=== PATIENT | female | born 1985 | race Caucasian/White ===

== ENCOUNTER 2016-12-19 19:41 | Emergency (ER) | payer SELFPAY ==
[~2016-12-19] VITALS: Ht 160 cm; Wt 104.8 kg
[~2016-12-19 19:41] MED LIST: AMOXICILLIN500 MG PO; CYCLOBENZAPRINE10 MG PO; IBUPROFEN200 M1 PO; IBUPROFEN600 MG PO; KEFLEX500 MG PO; NAPROSYN500 MG PO; NAPROXEN500 MG PO; NORCO 5-325 TA1 EACH PO; PSEUDOEPHEDRINE60 MG PO; PYRIDIUM200 MG PO; ROBAXIN500 MG PO; ULTRAM50 MG PO; ZOFRAN4 MG PO
[2016-12-19] MEDS ORDERED: KEFLEX500 MG PO (21:36)
== END 2016-12-19 21:55 | disposition home or self-care (01) ==
LOC: ED 19:41
DX: K80.20 Calculus of gallbladder without cholecystitis without obstruction (principal); N39.0 Urinary tract infection, site not specified; F17.200 Nicotine dependence, unspecified, uncomplicated; Z90.79 Acquired absence of other genital organ(s)
CPT/HCPCS: 74176; 81001; 84703; 99284

== ENCOUNTER 2017-03-27 18:57 | Emergency (ER) | payer SELFPAY ==
[~2017-03-27] VITALS: Ht 160 cm; Wt 104.8 kg
== END 2017-03-27 19:34 | disposition home or self-care (01) ==
LOC: ED 18:57
DX: S60.221A Contusion of right hand, initial encounter (principal); F17.200 Nicotine dependence, unspecified, uncomplicated; W22.8XXA Striking against or struck by other objects, initial encounter
CPT/HCPCS: 73130; 99283

== ENCOUNTER 2017-04-04 16:29 | Emergency (ER) | payer SELFPAY ==
[~2017-04-04] VITALS: Ht 160 cm; Wt 104.8 kg
[2017-04-04] MEDS ORDERED: ADVIL200 M1 PO (16:44)
[2017-04-04] MEDS ORDERED: NORCO 10-325 T1 EACH PO (17:06)
== END 2017-04-04 17:15 | disposition home or self-care (01) ==
LOC: ED 16:29
DX: S93.401A Sprain of unspecified ligament of right ankle, initial encounter (principal); F17.200 Nicotine dependence, unspecified, uncomplicated; Z90.721 Acquired absence of ovaries, unilateral; X50.1XXA Overexertion from prolonged static or awkward postures, initial encounter
CPT/HCPCS: 73610; 99283

== ENCOUNTER 2017-05-05 15:19 | Emergency (ER) | payer SELFPAY ==
[~2017-05-05] VITALS: Ht 160 cm; Wt 104.3 kg
[~2017-05-05 15:19] MED LIST changes: +ADVIL200 M1 PO; +NORCO 10-325 T1 EACH PO
[2017-05-05] MEDS ORDERED: VENTOLIN HFA18 GM INH (15:45)
== END 2017-05-05 15:58 | disposition home or self-care (01) ==
LOC: ED 15:19
DX: J06.9 Acute upper respiratory infection, unspecified (principal); J40 Bronchitis, not specified as acute or chronic; F17.200 Nicotine dependence, unspecified, uncomplicated
CPT/HCPCS: 99283

== ENCOUNTER 2017-07-16 01:07 | Emergency (ER) | payer SELFPAY ==
[~2017-07-16] VITALS: Ht 160 cm; Wt 104.3 kg
[~2017-07-16 01:07] MED LIST changes: +VENTOLIN HFA18 GM INH
[2017-07-16] MEDS ORDERED: ZOFRAN4 MG PO (04:07)
[2017-07-16] MEDS ORDERED: NORCO 5-325 TA1 EACH PO (04:07)
== END 2017-07-16 04:20 | disposition home or self-care (01) ==
LOC: ED 01:07
DX: R10.13 Epigastric pain (principal); F17.200 Nicotine dependence, unspecified, uncomplicated; Z90.721 Acquired absence of ovaries, unilateral
CPT/HCPCS: 80053; 83690; 84703; 85025; 96374; 96375; 96376; 99283; J1170; J2405

== ENCOUNTER 2017-08-02 00:42 | Observation (INO) | payer SELFPAY ==
[~2017-08-02] VITALS: Ht 160 cm; Wt 105.7 kg
--- NOTE | 2017-08-02 03:52 | NUR ---
PT ARRIVED FROM ED VIA STRETCHER. SHE STATES HER PAIN IS AT A 4/10 WHICH IS TOLERABLE AND HER PAIN GOAL. PT WAS ABLE TO AMBULATE TO BED WITH STANDBY ASSIST. PT HAS LR INFUSING AND DENIES NEEDS AT THIS TIME.
--- NOTE | 2017-08-02 05:56 | NUR ---
PT IS RESTING WITH EYES CLOSED, RESPIRATIONS EVEN AND NONLABORED. CALL LIGHT IS WITHIN REACH.
--- NOTE | 2017-08-02 07:02 | NUR ---
HELPED PT TO RESTROOM AND SHE HAS NAUSEA NOW, GIVING ZOFRAN IV.
--- NOTE | 2017-08-02 07:25 | NUR ---
RECIEVED BEDSIDE REPORT FROM CAR BOONE. PT AWAKE, ALERT, ORIENTED X 4. PT DENIES NEEDS.
--- NOTE | 2017-08-02 08:28 | NUR ---
CONSENT SIGNED BY PT, WITNESSED BY THIS RN. PT DID PRE OP WIPE DOWN, NEW GOWN ON. PT ON MENSES, REMOVED TAMPON, HAS STEFANO PAD AND MESH PANTIES ON.
--- NOTE | 2017-08-02 09:00 | NUR ---
PT TALKING WITH ZEKE, RESPIRATORY THERAPIST REGARDING SMOKING CESSATION. PT REPORTS THAT SHE QUIT SMOKING 3 WEEKS AGO. PT REPORTS THAT SHE QUIT BECAUSE SHE HAS BEEN SICK, BUT STATES THAT SHE IS VERY MOTIVATED TO REMAIN NOT SMOKING.
--- NOTE | 2017-08-02 09:17 | NUR ---
PT TRANSFERED TO [facility]ARYAN[facility] MARTINEZ RN TOOK PT TO DAY SURGERY AT 0915.
--- NOTE | 2017-08-02 09:22 | CONS ---
[facility] [address] [place], [place] [address] Signed DATE OF CONSULTATION: 08/02/2017 CHIEF COMPLAINT: Right upper quadrant abdominal pain. HISTORY OF PRESENT ILLNESS: Pennie is a 31-year-old obese female, who now has three children, although she is single, her boyfriend has helped her and is quite useful to her in that way and with the children. Yesterday evening, she had a terrible attack of right upper quadrant abdominal pain with nausea and vomiting. She came to emergency room for evaluation. The CT scan from last year showed a stone in the gallbladder. Her laboratory work was unremarkable except some bacteria in the urine. Beta hCG was negative. Consequently, she had an ultrasound, which confirmed a 1.5 cm stone in the neck of the gallbladder with a positive Man sign. The gallbladder wall is not thickened, at 2.2 mm, and the common bile duct is unremarkable. She was given Levaquin and Flagyl and I was asked to admit her as a general surgeon on-call. Overnight, she has done well. She is now comfortable with her pain medication. PAST MEDICAL HISTORY: Cholelithiasis, nephrolithiasis, and obesity. PAST SURGICAL HISTORY: x2, left oophorectomy, and lithotripsy. SOCIAL HISTORY: She does smoke marijuana, but does not drink. She is single, but her boyfriend is with her. She has 3 children. 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 Her mother Lela Bernal at [phone]. She has no primary care provider. She prefers the [facility]. FAMILY HISTORY: Her mother had uterine cancer and dad has diabetes. REVIEW OF SYSTEMS: She had 10 systems reviewed and she told me she broke her hand at one point in the past, her right hand. ALLERGIES: None. MEDICATIONS: Arcadia 5 mg. Electronically Signed By: BOBBY FORD MD 08/02/17 0922 PATIENT NAME: PENNIE BERNAL CONSULTATION DATE OF : 85 REPORT #: [id number] PHYSICIAN: BOBBY FORD MD PCP: NO PRIMARY CARE PHYSICIAN REPORT IS CONFIDENTIAL AND NOT TO BE RELEASED WITHOUT AUTHORIZATION [facility] [address] [place], [place] [address] Signed PHYSICAL EXAMINATION: VITAL SIGNS: Her blood pressure is 122/66, heart rate 59, respiratory rate 16, and temperature is 97.2. She is 98% on room air. She is 5 feet 3 inches, at 105 kg. GENERAL: Pennie is a 31-year-old female lying supine in her hospital bed. She is easily awakened. She does not appear systemically ill or toxic. She is not jaundiced. LUNGS: Clear to auscultation bilaterally. HEART: Regular rate and rhythm. ABDOMEN: Obese, but soft. She clearly has an umbilical, maybe an epigastric hernia. I am not sure that it is completely reducible. LABORATORY DATA: Her white blood cell count is 10.7, neutrophils 51. BUN 10, creatinine 0.69, AST 11, ALT 18, alkaline phosphatase 89, and albumin is 3.7. Lipase is 33. Beta hCG is negative. Urinalysis shows some bacteria. Urine culture is pending. RADIOGRAPHIC STUDIES: Ultrasound shows a 1.5 cm stone in the neck of the gallbladder. She had a positive Man sign. The gallbladder wall is not thick, at 2.2 mm. Common bile duct is unremarkable. ASSESSMENT AND PLAN: Pennie is a 31-year-old female who presents with cholecystitis, cholelithiasis, as well as what probably is an umbilical hernia and probably an early urinary tract infection. She has been admitted, given IV fluids and antibiotics. We will plan on taking her to the OR later today. We have already discussed the location of function of the gallbladder along with the expected intraop and postop course. We did review the risks as well. She has expressed understanding and would like to proceed. Bobby Ford MD ALB/MODL /[id number] cc: Bobby Ford MD Copies: BOBBY FORD MD Electronically Signed By: BOBBY FORD MD 08/02/17 0922 PATIENT NAME: PENNIE BERNAL CONSULTATION DATE OF : 85 REPORT #: [id number] PHYSICIAN: BOBBY FORD MD PCP: NO PRIMARY CARE PHYSICIAN REPORT IS CONFIDENTIAL AND NOT TO BE RELEASED WITHOUT AUTHORIZATION [facility] [address] [place] [id number] Signed ~ Electronically Signed By: BOBBY FORD MD 08/02/17 0922 PATIENT NAME: PENNIE BERNAL CONSULTATION DATE OF : 85 REPORT #: [id number] PHYSICIAN: BOBBY FORD MD PCP: NO PRIMARY CARE PHYSICIAN REPORT IS CONFIDENTIAL AND NOT TO BE RELEASED WITHOUT AUTHORIZATION
--- NOTE | 2017-08-02 12:13 | NUR ---
08/02/17 1213 Deysi Penny 1200 PATIENT ARRIVES TO PACU AWAKE, ALERT AND ORIENTED X3. RESP EVEN AND UNLABORED, MASK AT 6 LITERS. C/O NEEDING TO "PEE." 1205 ASST PATIENT WITH BED ZIMMER, WITH CLEAR TAMELA URINE OUT, PERIPAD REPLACED. 1210 PATIENT HAVING NAUSEA, IMPROVING WITH ALCOHOL SWAB. OFF MASK ON ROOM AIR AT 97%.
--- NOTE | 2017-08-02 13:13 | NUR ---
PT RETURNED TO FLOOR AT 1255 VIA [facility]. [facility] WITH 3 PERSON ASSIST. PT WAS ABLE TO MOVE SELF UP IN BED USING TRAPEZE. PT C/O 01/30 PAIN TO ABDOMINAL INCISION. GAVE DILAUDID 0.6 MG IV PRN.
[2017-08-02] MEDS ORDERED: LEVAQUIN500 MG PO (13:17)
--- NOTE | 2017-08-02 13:49 | NUR ---
PT TAKING BITES OF JELLO, SIPPING ON JUICE, WATER. TOLERATING WELL THUS FAR. PT REPORTS THAT SHE STILL HAS PAIN TO ABDOMEN. DENIES NAUSEA.
[2017-08-02] MEDS ORDERED: ZOFRAN4 MG PO (14:04)
[2017-08-02] MEDS ORDERED: VENTOLIN HFA18 GM INH (14:05)
--- NOTE | 2017-08-02 15:58 | NUR ---
PT DOING WELL. TOLERATED CLEAR LIQUIDS, TOLERATED CRACKERS. IS NOW GOING TO ATTEMPT TO EAT SOUP AND SANDWICH. DENIES NAUSEA. UP WITH STANDBY ASSIST TO BATHROOM, TOLERATED WELL. PER PACU REPORT, PT VOIDED URINE IN PACU, AND PT HAD NOW VOIDED URINE X 2 SINCE ARRIVAL BACK TO FLOOR. PT STATED THAT SHE WILL EAT SOME OF HER FOOD, THEN TRY A NORCO, SHE REPORTS NAUSEA WITH NORCO IN PAST IF SHE HAS NOT EATEN SOMETHING FIRST. DRESSINGS TO ABDOMEN WNL, C/D/I.
--- NOTE | 2017-08-02 16:18 | NUR ---
PT SITTING UP AT EDGE OF BED. RATED PAIN TO ABDOMEN 7/10. GAVE NORCO 5/325 MG 1 TAB PO PRN. PT EATING SANDWICH AND SOUP, TOLERATING WELL. PT DENIED OTHER NEEDS AT THIS TIME.
--- NOTE | 2017-08-02 17:02 | NUR ---
PT C/O NAUSEA. GAVE ZOFRAN 8 MG IV PRN. PT ATE 50% OF SOUP AND SANDWICH, AND HAD NORCO 1 TAB PRN, AND IS NOW REPORTING NAUSEA. PT RESTING IN BED.
--- NOTE | 2017-08-02 17:08 | NUR ---
NOTIFIED DR. FORD THAT PT IS FEELING NAUSEATED FOLLOWING EATING REGULAR DIET FOOD AND TAKING NORCO PO. DR. FORD ACKNOWLEDGED THIS. STATED THAT HE ALREADY SPOKE WITH PT, AND NOTIFIED PT THAT SHE MAY NEED TO STAY OVERNIGHT IF SHE IS HAVING NAUSEA OR UNCONTROLLED PAIN. NOTIFIED PT OF THIS.
--- NOTE | 2017-08-02 17:19 | NUR ---
PT C/O 10/30 PAIN TO ABDOMEN. ENCOURAGED PT TO EAT CRACKERS WITH PRN NORCO, 1 TAB PO PRN. PT EATING CRACKERS. REPORTS NAUSEA HAS "MOSTLY" SUBSIDED. PT IN BED, RESTING.
--- NOTE | 2017-08-02 17:51 | NUR ---
PT HAD LAP TISH TODAY. RETURNED TO FLOOR FROM PACU THIS AFTERNOO. HAD PRN DILAUDID IV, THEN PRN NORCO FOR ABDOMINAL PAIN. PT ATE 50% OF DINNER, REGULAR DIET. APROXIMATELY 40 MINUTES AFTER THIS AND TAKING PRN NORCO, PT REPORTED NAUSEA. GAVE ZOFRAN 8 MG IV PRN. PT HAS VOIDED X 2 SINCE RETURN TO FLOOR. UP WITH STANDBY ASSIST. PT MAY DISCHARGE TONIGHT IF SHE FEELS READY AND MEETS CRITERIA, OR TOMORROW. PT REPORTS THAT SHE WANTS TO DISCHARGE TOMORROW, BECAUSE OF NAUSEA.
--- NOTE | 2017-08-02 18:12 | NUR ---
PT RESTING IN BED WITH EYES CLOSED. DENIES NEEDS AT THIS TIME.
--- NOTE | 2017-08-02 18:44 | NUR ---
PT AMBULATING IN HALLS. TOLERATING WELL. PT REPORTED "GAS PAIN". PRIOR TO AMBULATION, PT TO BATHROOM, VOIDED 700 CC CLEAR YELLOW URINE. PT DENIES NAUSEA AT THIS TIME.
--- NOTE | 2017-08-02 19:05 | NUR ---
PT C/O NAUSEA, AND PAIN TO ABDOMEN, 5/10. GAVE DILAUDID 1 MG IV PRN. ALSO GAVE PHENERGAN 12.5 MG IV PRN FOR NAUSEA. PT IN BED. PT'S FAMILY AT BEDSIDE. PERSONAL SUPPLIES AND CALL LIGHT IN REACH.
--- NOTE | 2017-08-02 19:30 | NUR ---
IN ROOM FOR REPORT, PT IS AWAKE IN BED. PAIN IS CONTROLLED WELL AT THIS TIME. PT DENIES NEEDS AT THIS TIME. CALL LIGHT IS WITHIN REACH.
--- NOTE | 2017-08-02 20:19 | NUR ---
IN ROOM TO GIVE EVENING MEDICATIONS. HELPED PT TO THE RESTROOM AND BACK TO BED. PT DENIES FURTHER NEEDS AT THIS TIME.
--- NOTE | 2017-08-02 22:30 | NUR ---
PT REPORTS PAIN IS 8/10 AT THIS TIME. GIVING PAIN MEDS AND JELLO. PT DENIES FURTHER NEEDS AT THIS TIME. CALL LIGHT IS WITHIN REACH.
--- NOTE | 2017-08-02 23:56 | NUR ---
PT IS RESTING WITH EYES CLOSED, RESPIRATIONS EVEN AND NONLABORED. CALL LIGHT IS WITHIN REACH AND CONT PULSEOX IS ON.
--- NOTE | 2017-08-03 02:17 | NUR ---
PT IS AWAKE IN BED, VS TAKEN. LAP DRESSINGS ARE CDI. PT HAS NO COMPLAINTS OF PAIN OR NAUSEA AT THIS TIME. SCD'S IN PLACE AND NEW IV FLUIDS ARE HUNG ALONG WITH FLAGYL. CALL LIGHT IS IN REACH.
--- NOTE | 2017-08-03 03:55 | NUR ---
PT IS RESTING WITH EYES CLOSED AND RESPIRATIONS ARE EVEN AND NONLABORED. CALL LIGHT IS WITHIN REACH.
--- NOTE | 2017-08-03 05:51 | NUR ---
PT REQUESTED PAIN MEDICINE FOR 12/30 PAIN. SHE DENIES FURTHER NEEDS AT THIS TIME. CALL LIGHT IS WITHIN REACH.
--- NOTE | 2017-08-03 07:35 | NUR ---
RECIEVED BEDSIDE REPORT FROM CAR BOONE. PT AWAKE, DROWSY. ORDERED BREAKFAST. DENIED NAUSEA. REPORTED PAIN IS WELL CONTROLLED AT THIS TIME. DENIED NEEDS. PERSONAL SUPPLIES IN REACH, IS CALL BUTTON.
--- NOTE | 2017-08-03 07:51 | NUR ---
PT IN BED. GAVE AM MEDICATIONS. PT RATED PAIN TO ABDOMEN 3/10, REPORTED THIS IS A TOLERABLE LEVEL OF PAIN. DENIED NAUSEA. DRESSINGS TO ABDOMEN C/D/I. ABDOMEN DISTENDED, PT REPORTS THAT SHE HAS NOT PASSED GAS SINCE SURGERY. BOWEL TONES ACTIVE X 4. PT AGREED TO AMBULATE IN HALLS AFTER BREAKFAST.
--- NOTE | 2017-08-03 08:17 | OR ---
[facility] [address], [place] [address] Signed DATE OF OPERATION: 08/02/2017 SURGEON: Bobby Ford MD PREOPERATIVE DIAGNOSES: 1. Acute cholecystitis cholelithiasis. 2. Incarcerated umbilical hernia. POSTOPERATIVE DIAGNOSES: 1. Acute cholecystitis cholelithiasis. 2. Incarcerated umbilical hernia. PROCEDURES: 1. Laparoscopic cholecystectomy with intraoperative cholangiogram (prolonged and difficult at 1 hour 20 minutes). 2. Primary umbilical herniorrhaphy. ESTIMATED BLOOD LOSS: Minimal. FINDINGS: The intraoperative cholangiogram was unremarkable. The gallbladder was distended, very edematous with a 1.5 cm stone in the neck. The umbilicus had previous laparoscopic trocars placed and there were four separate holes through her umbilicus with incarcerated fat. INDICATIONS: Pennie is a 31-year-old female who is now has 3 children. She presented to our emergency room with a day of right upper quadrant abdominal pain, nausea, and vomiting. She is known to have a gallstone. White blood cell count was 10.7. The liver function tests were fine. Beta hCG was negative. UA showed probably some bacteria, so we gave her Levaquin and Flagyl to cover the gallbladder and the urinary tract infection. An ultrasound showed a 1.5 cm stone in the neck with a positive Man sign. The gallbladder wall was said only be 2.2 mm, but it was quite thick and edematous during the procedure. The common bile duct was unremarkable. I met with Pennie in the hospital this morning. We discussed the above findings. We discussed the location of function of the gallbladder. We discussed laparoscopic versus open cholecystectomy. She understands expected intraop and postop course. There is risk of surgery including, but not limited to bleeding, infection, scarring, change in contour of the skin, damage to bowel, damage to main bile duct, incisional hernias and other unforeseen Electronically Signed By: BOBBY FORD MD 08/03/17 0817 PATIENT NAME: PENNIE BERNAL OPERATIVE REPORT DATE OF : 85 REPORT #: [id number] PHYSICIAN: BOBBY FORD MD PCP: NO PRIMARY CARE PHYSICIAN REPORT IS CONFIDENTIAL AND NOT TO BE RELEASED WITHOUT AUTHORIZATION [facility] [address] [place], [place] [address] Signed comorbidities. She had expressed understanding and wished to proceed. PROCEDURE NOTE: Pennie was a difficult IV stick. Apparently, she had IV from the floor in the small artery on her left wrist. That was removed and we used our ultrasound and two of our nurses finally were able to find a vein on the right arm for her IV. After this, we took her into the operating room and placed in the supine position under general endotracheal tube anesthesia. She was on preoperative antibiotics along with subcutaneous heparin. SCDs were utilized. She was prepped and draped in usual sterile fashion. We could easily see she had an umbilical hernia. I told her preoperatively we would place our Naomi trocar through this area. We made our standard supraumbilical incision. We carried that down around the umbilicus bluntly and with the cautery. We found four separate holes all containing fat. All the fat was excised and/or reduced. We placed the Naomi trocar through the umbilical fascial defect and held in place with our 0 Vicryl sutures. After this, we placed the remaining trocars in our usual positions under direct visualization of camera without difficulty. The gallbladder was grasped and elevated the right upper quadrant. It was quite ways underneath the liver. There was at least 6 cm of liver edge before we could get down to the even the top of the gallbladder. It was very distended, rajinder in color and quite edematous. We had to have an extra nurse scrub in and we were worried we were going to have to place the fan retractor. The duodenum was also adherent to the neck of the gallbladder. It took just a minute to bluntly dissect that down on away. We carefully dissected out the triangle of Calot and placed the intraoperative cholangiocatheter into the cystic duct. The intraoperative cholangiogram was performed and we found no filling defects in the biliary tree and the contrast flowed readily into the duodenum. We secured the cystic duct stump with a PDS Endoloop along with 2 clips to adriane its location. After this, the cystic artery was coming up onto the gallbladder, so we placed a clip across that and divided it next to the gallbladder. We very carefully removed the gallbladder from the liver with the help of the cautery. It took additional time, particularly since all of edema was absorbing the heat from our cautery. Her gallbladder was quite deep underneath the liver and it took a while to remove it and placed it into the EndoCatch bag. The right upper quadrant was then irrigated and suctioned out until clear. Pictures were taken throughout for photodocumentation. We used our laparoscopic suturing device to pass 0 Vicryl suture on either side of the fascia of the subxiphoid trocar site. This was tied down to close this fascia primarily. After this, the gas was allowed to escape and all the trocars were removed along with the gallbladder. The gallbladder was opened on the back table by our circulating nurse. It was very mucoid and very thick with a 1.5 cm gallstone. I examined the umbilical fascial defect and I decided to simply reduce the surrounding fat and I brought the fascial edges together transversely with the help of running #1 Prolene suture. This gave excellent primary closure of her umbilical fascial defect. Local anesthetic was then copiously injected into all trocar sites. The umbilical skin was brought down to the midline fascia with Electronically Signed By: BOBBY FORD MD 08/03/17 0817 PATIENT NAME: PENNIE BERNAL OPERATIVE REPORT DATE OF : 85 REPORT #: [id number] PHYSICIAN: BOBBY FORD MD PCP: NO PRIMARY CARE PHYSICIAN REPORT IS CONFIDENTIAL AND NOT TO BE RELEASED WITHOUT AUTHORIZATION [facility] [address] [place] [phone] Signed an interrupted 2-0 PDS suture. All trocar sites were irrigated and suctioned out until clear. The skin and dermis of each trocar site were closed with interrupted 3-0 subcuticular Monocryl sutures. Dry gauze and tape were then applied to all incisions. Pennie was awakened from anesthesia, extubated in the OR, and taken to recovery room in stable condition. Bobby Ford MD ALB/MODL /[id number] cc: Bobby Ford MD Copies: BOBBY FORD MD ~ Electronically Signed By: BOBBY FORD MD 08/03/17 0817 PATIENT NAME: GABEPENNIEAILYN MORNEO OPERATIVE REPORT DATE OF : 85 REPORT #: [id number] PHYSICIAN: BOBBY FORD MD PCP: NO PRIMARY CARE PHYSICIAN REPORT IS CONFIDENTIAL AND NOT TO BE RELEASED WITHOUT AUTHORIZATION
--- NOTE | 2017-08-03 09:15 | NUR ---
PT IN BED, ATE 100% OF BREAKFAST. DENIED NAUSEA. REPORTED PAIN TO ABDOMEN 5/10, BUT STATED THAT THIS IS A TOLERABLE LEVEL OF PAIN FOR HER AT THIS TIME.
--- NOTE | 2017-08-03 09:30 | NUR ---
PT IN BED, REPORTS PAIN TO ABDOMEN 5/10. STATES THIS IS TOLERABLE LEVEL OF PAIN. PERSONAL SUPPLIES AND CALL LIGHT IN REACH.
--- NOTE | 2017-08-03 09:57 | NUR ---
PT REPORTED PAIN HAS INCREASED, NOW 6/10 TO ABDOMEN. GAVE NORCO 5/325 MG, 2 TABS PO PRN. PT DENIED OTHER NEEDS. ATE CRACKES WITH NORCO.
--- NOTE | 2017-08-03 10:35 | NUR ---
PT AMBULATED IN HALLS, AROUND "LOOP" X 1, TOLERATED WELL. PT THEN TO ROOM, SITTING UP AT EDGE OF BED.
--- NOTE | 2017-08-03 10:43 | NUR ---
GAVE DISCHARGE INSTRUCTIONS TO PT. QUESTIONS ASKED AND ANSWERED. PT VERBALIZED UNDERSTANDING. PT SITTING UP AT EDGE OF BED.
--- NOTE | 2017-08-03 10:44 | NUR ---
DR. FORD ON FLOOR, NOTIFIED DR. FORD THAT PT WISHES TO DISCHARGE. DR. FORD STATED THAT PT IS OK TO DISCHARGE TO HOME.
--- NOTE | 2017-08-03 11:22 | NUR ---
PT SITTING IN BED-ALERT AND ORIENTED. PT PLANNING TO BE DC'D TODAY, MENTIONED THAT PAIN WAS UNCOMFORTABLE BUT TOLERABLE. REQUESTED PRAYER, WILL FOLLOW NEEDED
== END 2017-08-03 11:30 | disposition home or self-care (01) ==
LOC: ED 00:42 → MS 00:43
PROVIDERS: ADMIT Colon & Rectal Surgery
PROC: BF101ZZ Fluoroscopy of Bile Ducts using Low Osmolar Contrast (ICD-10-PCS; 2017-08-02)
PROC: 0WQF0ZZ Repair Abdominal Wall, Open Approach (ICD-10-PCS; 2017-08-02)
PROC: 0FT44ZZ Resection of Gallbladder, Percutaneous Endoscopic Approach (ICD-10-PCS; principal; 2017-08-02 10:45)
DX: K80.12 Calculus of gallbladder with acute and chronic cholecystitis without obstruction (principal); K42.0 Umbilical hernia with obstruction, without gangrene; N39.0 Urinary tract infection, site not specified; E66.9 Obesity, unspecified; Z68.41 Body mass index [BMI] 40.0-44.9, adult; Z79.891 Long term (current) use of opiate analgesic; Z87.891 Personal history of nicotine dependence
CPT/HCPCS: 00790; 74300; 76705; 80053; 81001; 83690; 84703; 85025; 87077; 87088; 87186; 96361; 96366; 96372; 96374; 96375; 96376; 99285; 99407; G0378; J0131; J1170; J1644; J1956; J2250; J2405; J2550; J2704; J2710; J2765; J3010; J7030; J7120; Q9967

== ENCOUNTER 2019-05-09 18:19 | Emergency (ER) | payer SELFPAY ==
[~2019-05-09] VITALS: Ht 160 cm; Wt 90.3 kg
[~2019-05-09 18:19] MED LIST changes: +BACTRIM DS TAB1 EACH PO; +LEVAQUIN500 MG PO; +TRAMADOL HCL50 MG PO
--- OUTSIDE RECORDS SUMMARY | 2019-05-09 18:22 | XMS ---
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 Naty has no Care Guidelines for this patient. Tomasz VISIT COUNT (12 MO.) 2 [facility] TOTAL 2 NOTE: Visits indicate total known visits. ED/UCC VISIT TRACKING (12 MO.) 05/09/2019 18:21 [facility] [place] TYPE: Emergency COMPLAINT: - COUGH 06/26/2018 02:[address] [facility] [place] TYPE: Emergency COMPLAINT: - R BREAST PAIN/NON INJURY DIAGNOSES: - Other alf (current) drug therapy - Nicotine dependence, unspecified, uncomplicated - Abscess of the breast and nipple INPATIENT VISIT TRACKING (12 MO.) No inpatient visits to display in this time frame [email or web address]
== END 2019-05-09 19:52 | disposition home or self-care (01) ==
LOC: ED 18:19
DX: R05 Cough (principal); R50.9 Fever, unspecified

== ENCOUNTER 2019-10-22 06:05 | Emergency (ER) | payer OTHER ==
[~2019-10-22] VITALS: Ht 160 cm; Wt 81.7 kg
--- OUTSIDE RECORDS SUMMARY | 2019-10-22 06:08 | XMS ---
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 Naty has no Care Guidelines for this patient. Toamsz VISIT COUNT (12 MO.) 2 [facility] TOTAL 2 NOTE: Visits indicate total known visits. ED/UCC VISIT TRACKING (12 MO.) 10/22/2019 06:05 [facility] TYPE: Emergency COMPLAINT: - L LEG PAIN/INJ 05/09/2019 18:21 [facility] TYPE: Emergency COMPLAINT: - COUGH-MSE TO HOME DIAGNOSES: - Fever, unspecified - Cough INPATIENT VISIT TRACKING (12 MO.) No inpatient visits to display in this time frame [email or web address]
== END 2019-10-22 09:00 | disposition home or self-care (01) ==
LOC: ED 06:05
DX: S86.112A Strain of other muscle(s) and tendon(s) of posterior muscle group at lower leg level, left leg, initial encounter (principal); F17.200 Nicotine dependence, unspecified, uncomplicated; X58.XXXA Exposure to other specified factors, initial encounter
CPT/HCPCS: 76882; 99283-25

== ENCOUNTER 2019-10-26 15:16 | Emergency (ER) | payer OTHER ==
[~2019-10-26] VITALS: Ht 160 cm; Wt 81.7 kg
--- OUTSIDE RECORDS SUMMARY | 2019-10-26 15:18 | XMS ---
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 Naty has no Care Guidelines for this patient. [facility] MO[facility] NOTE: Visits indicate total known visits. ED/C VISIT TRACKING (12 MO.) [facility]2019 [facility] COMPLAINT: - CALF PAIN, INJ 10/22/2019 06:05 [facility] TYPE: Emergency COMPLAINT: - L LEG PAIN/INJ DIAGNOSES: - Strain of other muscle(s) and tendon(s) of posterior muscle g - Pain in left leg - Exposure to other specified factors, initial encounter - Nicotine dependence, unspecified, uncomplicated 05/09/2019 18:21 [facility] [place] TYPE: Emergency COMPLAINT: - COUGH-MSE TO HOME DIAGNOSES: - Fever, unspecified - Cough INPATIENT VISIT TRACKING (12 MO.) No inpatient visits to display in this time frame [email or web address]
== END 2019-10-26 17:37 | disposition left against medical advice (07) ==
LOC: ED 15:16
DX: Z53.21 Procedure and treatment not carried out due to patient leaving prior to being seen by health care provider (principal)